=== PATIENT | female | born 1940 | race Caucasian/White ===

== ENCOUNTER 2022-06-24 14:39 | Observation (INO) ==
--- NOTE | 2022-06-24 14:45 | Emergency Department Note ---
Impression & Plan Interstitial lung disease, Fall, Acute hip pain, Weakness, Cellulitis ED Provider Note NAME: BINH BROWNE AGE: 82 SEX: F : 1940 ARRIVES VIA: Ambulance INFORMANT: [Patient][, ] ED PROVIDER(S): [Taz Argueta MD] Chief Complaint: Fall, weakness HPI: Patient presents from home due to concern for associated fall and weakness. The patient states that when she fell she fell from a seated position to her right side did have some right-sided hip pain. She denies any LOC or head strike. No fevers or chills. The patient was noted to be soiled in stool. Patient denies any chest pains or shortness of breath. The patient does wear chronic oxygen. Patient states that she does have home health workers that come into the home 3 days a week and they were last on Saturday. The patient does not remember her last she ate. Patient states that she has had increasing difficulty with ambulation and recurrence of falls. ROS: See HPI for pertinent positives and negatives. A total of 10 systems were reviewed and otherwise negative. Past medical history: See below Surgical history: See below Social history: See below Physical Exam: GENERAL: Disheveled, covered in stool, nasal cannula in place EYE EXAM: Normal conjunctiva. PERRL, no anisocoria and EOM's grossly intact w/o pain. NECK: Supple, no nuchal rigidity, no adenopathy, non-tender. No signs of meningismus. FROM of the neck with good chin to chest and neck extension. No stridor. LUNGS: Clear to auscultation. Normal chest wall mechanics. HEART: NSR, no MRG. ABDOMEN: Abdomen soft, non-tender, normo-active bowel sounds, no masses, no rebound or guarding. BACK: No CVA TTP. No reproducible thoracic or lumbar TTP. SKIN: Blanching erythema to the vulvovaginal groin area with no crepitus or string : Excoriated vulvovaginal and groin area without obvious Soheila. Intertriginous rash noted to the inferior portion of the bilateral breasts. UPPER EXTREMITIES: Upper extremities are grossly normal. LOWER EXTREMITIES: Grossly normal, no edema. NEURO EXAM: A&O x3, cranial nerves II-XII grossly intact, normal speech, moves all 4 extremities. Differential diagnoses: Fracture, dislocation, contusion, intra-abdominal, pneumothorax, intrathoracic, intracranial, neurologic, compartment syndrome, rhabdomyolysis, as well as other pathologies. Course: Patient was seen and evaluated the bedside. Full history physical exam was performed. EKG interpreted by me Significant motion artifact noted, ventricular rate is 103 normal QRS, left axis deviation no obvious ST elevations. No prior EKGs for comparison. Imaging Studies: See Below Cardiac monitoring: An order was placed for continuous cardiac monitoring. The monitor shows a rate of 92 with sinus rhythm. MDM: Patient was seen due to concern for falls and weakness. Blood work was obtained along with an EKG troponin chest x-ray CT head and cervical spine given the patient's fall. Right hip x-ray also obtained. Patient's sister did arrive and was wanting to take her home but did state that given that the patient has inability to care that this would not be safe to do so. The patient's blood work shows white count of 13 with a normal H&H and platelet count. The patient did receive a dose of Rocephin given the excoriation noted to her groin area likely consistent with a cellulitis. Kidney function unremarkable. Bilirubin at 2 but the patient has no right upper quadrant pain. TSH is low but free T4 is normal. COVID-negative patient CT head negative. CT cervical spine negative. The patient's chest x-ray shows worsening interstitial thickening. The patient's right hip x-ray is negative. I did speak the on-call hospitalist Dr. Henson and the patient was admitted to the medicine service. Past Med/Surg History Medical History Chronic cough Interstitial lung disease Lethargy Surgical History No pertinent past surgical history Social History Smoking Status: Never smoker Hx Alcohol Use: No Hx Substance Use: No Preferred Language: Mohawk Feels Safe at Home: Yes Allergies Allergies Allergy/AdvReac Type Severity Reaction Status Date / Time No Known Allergies Allergy Verified 06/24/22 15:54 Home Meds Home Medications Medication Instructions Recorded Confirmed hydrochlorothiazide 25 mg tablet 25 mg PO DAILY 03/12/22 06/24/22 sertraline 100 mg tablet 100 mg PO BID 03/12/22 06/24/22 metoprolol tartrate 25 mg tablet 25 mg PO DAILY 06/24/22 06/24/22 Previous Rx's Medication Instructions Recorded Oxygen Home #2 L 03/12/22 Portable Oxygen #1 ea 03/12/22 Results & Data (ED) Vital Signs Vital Signs - 24 hr 06/24/22 15:16 06/24/22 15:31 06/24/22 15:56 Temperature 37.2 C 37.2 C Temperature Source Oral Oral Pulse Rate 91 H 91 H Pulse Rate [Apical] 89 Pulse Rhythm [Apical] Respiratory Rate 18 18 18 Respiratory Effort / Characteristics Non-Labored Respiratory Depth Normal Blood Pressure 174/88 H Blood Pressure [Right Arm] Blood Pressure Mean 116 Blood Pressure Mean [Right Arm] Pulse Oximetry 96 96 99 Oxygen Delivery Method Nasal Cannula Nasal Cannula Nasal Cannula Oxygen Flow Rate 2 2 2 Sepsis Recent Fever Within 48 Hours No Sepsis New/Unexplained Change in Mental Status N/A Sepsis Action Taken by Nursing No Action Required 06/24/22 17:00 Temperature 37 C Temperature Source Oral Pulse Rate Pulse Rate [Apical] 87 Pulse Rhythm [Apical] Regular Respiratory Rate 20 Respiratory Effort / Characteristics Respiratory Depth Blood Pressure Blood Pressure [Right Arm] 144/79 H Blood Pressure Mean Blood Pressure Mean [Right Arm] 100 Pulse Oximetry 95 Oxygen Delivery Method Nasal Cannula Oxygen Flow Rate 2 Sepsis Recent Fever Within 48 Hours Sepsis New/Unexplained Change in Mental Status Sepsis Action Taken by Half-Way Medications Current Medication List: was personally reviewed by me Laboratory Data Attestation: I reviewed the patient's lab results. Result diagrams: 06/24/22 15:54 06/24/22 15:54 Lab Results 06/24/22 06/24/22 06/24/22 Range/Units 15:34 15:54 15:54 WBC 13.46 H (4.8-10.8) K/ul RBC 4.97 (3.93-5.22) M/uL Hgb 15.4 (12.0-16.0) g/dl Hct 44.6 (34.1-44.9) % MCV 89.7 (80.0-100.0) fL MCH 31.0 (25.0-34.0) pg MCHC 34.5 (32.0-36.0) g/dL RDW Std Deviation 45.3 (36.4-46.3) fL RDW Coeff of Xiomy 13.9 (11.5-14.5) % Plt Count 160 (130-400) K/uL MPV 11.5 (9.4-12.3) fL Immature Gran % (Auto) 0.3 % Neut % (Auto) 78.2 % Lymph % (Auto) 13.1 % Ness % (Auto) 5.9 % Eos % (Auto) 2.4 % Baso % (Auto) 0.1 % Neut # (Auto) 10.52 H (1.4-6.5) K/uL Lymph # (Auto) 1.76 (1.2-3.4) K/uL Ness # (Auto) 0.80 (0.24-0.82) K/uL Eos # (Auto) 0.32 (0-0.50) K/uL Baso # (Auto) 0.02 (0-0.2) K/uL Immature Gran # (Auto) 0.04 H (0.00-0.02) K/uL Sodium 140 (136-145) mmol/L Potassium 4.6 (3.5-5.1) mmol/L Chloride 105 (98-107) mmol/L Carbon Dioxide 27 (21-32) mmol/L Anion Gap 8 (3-11) BUN 13 (6-23) mg/dl Creatinine 0.63 (0.6-1.2) mg/dl Est Cr Clr Drug Dosing 65.8 ml/min Est GFR ( Amer) 97.5 ml/min Est GFR (Non-Af Amer) 84.1 ml/min BUN/Creatinine Ratio 20.6 H (10-20) Glucose 100 H (70-99(Fasting)) mg/dl Calcium 9.4 (8.5-10.1) mg/dl Total Bilirubin 2.0 H (0.2-1.0) mg/dl AST 32 (13-39) U/L ALT 20 (7-52) U/L Alkaline Phosphatase 69 (34-104) U/L Total Protein 6.7 (6.0-8.3) gm/dl Albumin 3.6 (3.4-5.0) gm/dl Globulin 3.1 (2.5-4.0) gm/dl Albumin/Globulin Ratio 1.2 (0.9-2) TSH 0.148 L (0.300-4.500) uIu/ml Free T4 1.35 (0.61-1.60) ng/dl SARS-CoV-2, RNA, NAAT (NEGATIVE) 06/24/22 Range/Units Unknown WBC (4.8-10.8) K/ul RBC (3.93-5.22) M/uL Hgb (12.0-16.0) g/dl Hct (34.1-44.9) % MCV (80.0-100.0) fL MCH (25.0-34.0) pg MCHC (32.0-36.0) g/dL RDW Std Deviation (36.4-46.3) fL RDW Coeff of Xiomy (11.5-14.5) % Plt Count (130-400) K/uL MPV (9.4-12.3) fL Immature Gran % (Auto) % Neut % (Auto) % Lymph % (Auto) % Ness % (Auto) % Eos % (Auto) % Baso % (Auto) % Neut # (Auto) (1.4-6.5) K/uL Lymph # (Auto) (1.2-3.4) K/uL Ness # (Auto) (0.24-0.82) K/uL Eos # (Auto) (0-0.50) K/uL Baso # (Auto) (0-0.2) K/uL Immature Gran # (Auto) (0.00-0.02) K/uL Sodium (136-145) mmol/L Potassium (3.5-5.1) mmol/L Chloride (98-107) mmol/L Carbon Dioxide (21-32) mmol/L Anion Gap (3-11) BUN (6-23) mg/dl Creatinine (0.6-1.2) mg/dl Est Cr Clr Drug Dosing ml/min Est GFR ( Amer) ml/min Est GFR (Non-Af Amer) ml/min BUN/Creatinine Ratio (10-20) Glucose (70-99(Fasting)) mg/dl Calcium (8.5-10.1) mg/dl Total Bilirubin (0.2-1.0) mg/dl AST (13-39) U/L ALT (7-52) U/L Alkaline Phosphatase (34-104) U/L Total Protein (6.0-8.3) gm/dl Albumin (3.4-5.0) gm/dl Globulin (2.5-4.0) gm/dl Albumin/Globulin Ratio (0.9-2) TSH (0.300-4.500) uIu/ml Free T4 (0.61-1.60) ng/dl SARS-CoV-2, RNA, NAAT NEGATIVE (NEGATIVE) Administered Medications Discontinued Medications Ceftriaxone Sodium (Rocephin) 2,000 mg in 70 mls @ 140 mls/hr IV NOW STA Stop: 06/24/22 17:07 Last Infusion: 06/24/22 17:54 Dose: 0 mls/hr Documented By: Admin: 06/24/22 17:20 Dose: 140 mls/hr Documented By: BLANCA Imaging Data Radiologist's Impression: Cervical Spine CT 06/24/22 15:[address] DOSE: 1065.11 mGy.cm HISTORY: fall TECHNIQUE: Multiaxial CT images of the cervical spine were performed and reformatted in the sagittal and coronal plane without the use of contrast. A dose lowering technique was utilized adhering to the principles of ALARA. COMPARISON: None. FINDINGS: No fractures. No subluxation. Prevertebral soft tissues and the C1-C2 interval are intact. No pneumothorax. Multinodular thyroid gland. Advanced degenerative changes within the cervical spine. IMPRESSION: No fractures within the cervical spine. ACT 112: Negative or not required by law. Electronically signed by: Juan Roldan M.D. 06/24/2022 4:37 PM Chest X-Ray 06/24/22 15:01 XR chest 1V portable HISTORY: Fall. weakness COMPARISON: Chest 03/08/2022. FINDINGS: No pneumothorax. No pleural effusions. The heart remains mildly enlarged. There is diffuse interstitial thickening which has slightly progressed. This may represent mild congestive change on the background of chronic interstitial change. Otherwise, no new focal lung consolidations to suggest a pneumonia. IMPRESSION: Interval progression of the diffuse interstitial thickening. This favors mild congestive change on the background of a chronic interstitial process. ACT 112: Negative or not required by law. Electronically signed by: Juan Roldan M.D. 06/24/2022 3:[address] 06/24/22 15:[address] DOSE: HISTORY: fall TECHNIQUE: Multiaxial CT images of the head were performed without the use of intravenous contrast. Automated exposure control was utilized for this study. A dose lowering technique was utilized adhering to the principles of ALARA. Comparison: None. Findings: The paranasal sinuses and mastoid air cells are clear. The calvarium and skull base are intact. There is no mass, hematoma, midline shift, acute infarct. White matter hypodensity is nonspecific but suggestive of microvascular ischemic change. The ventricles and sulci demonstrate mild age-related involutional changes. Impression: No acute intracranial abnormality. Atrophy and microvascular ischemic changes. ACT 112: Negative or not required by law. Electronically signed by: Juan Roldan M.D. 06/24/2022 4:33 PM Hip/Pelvis X-Ray 06/24/22 15:01 XR hip RT 2V w pelvis CLINICAL HISTORY: fall, hip pain COMPARISON STUDY: None. FINDINGS: No fracture or dislocation within the pelvis or hips. The sacrum is intact. Soft tissues are unremarkable. IMPRESSION: No fracture or dislocation within the pelvis or hips. ACT 112: Negative or not required by law. Electronically signed by: Juan Roldan M.D. 06/24/2022 3:45 PM Discharge Plan Visit Data Chief Complaint: Fall ED Provider: Taz Argueta Discharge Problem: Interstitial lung disease, Fall, Acute hip pain, Weakness, Cellulitis Forms Stand Alone Forms: [facility] [employer] Prescriptions Prescriptions: No Action sertraline 100 mg tablet 100 mg PO BID Rx Instructions: PER PT'S SISTER & [id number], "TAKING ONCE A DAY". LAST FILLED 06/08/22 FOR 180 TABS/90 DAYS. hydrochlorothiazide 25 mg tablet 25 mg PO DAILY Rx Instructions: LAST FILLED 06/08/22 FOR 90 TABS/90 DAYS. (DME) Portable Oxygen Misc See Rx Instructions .Route Qty: 1 0RF Rx Instructions: 2L at all times via nc (DME) Oxygen Home Liters Per Minute See Rx Instructions .ROUTE .MEDSUPPLY Qty: 2 0RF Rx Instructions: 2L via nc at all times metoprolol tartrate 25 mg tablet 25 mg PO DAILY Rx Instructions: LAST FILLED 05/30/22 FOR 30 TABS/30 DAYS. Referrals Referrals: Pavithra Alvarez CRNP [Primary Care Provider] -
--- NOTE | 2022-06-24 15:47 | XRay Report ---
XR hip RT 2V w pelvis CLINICAL HISTORY: fall, hip pain COMPARISON STUDY: None. FINDINGS: No fracture or dislocation within the pelvis or hips. The sacrum is intact. Soft tissues ar e unremarkable. IMPRESSION: No fracture or dislocation within the pelvis or hips. ACT 112: Negative or not required by law. Electronically signed by: Juan Roldan M.D. 06/24/2022 3:45 PM
--- NOTE | 2022-06-24 15:48 | XRay Report ---
XR chest 1V portable HISTORY: Fall. weakness COMPARISON: Chest 03/08/2022. FINDINGS: No pneumothorax. No pleural effusions. The heart remains mildly enlarged. There is diffuse interstitial thickening which has slightly progressed. This may represent mild congestive change on t he background of chronic interstitial change. Otherwise, no new focal lung consolidations to suggest a pneumonia. IMPRESSION: Interval progression of the diffuse interstitial thickening. This favors mild congestive change on th e background of a chronic interstitial process. ACT 112: Negative or not required by law. Electronically signed by: Juan Roldan M.D. 06/24/2022 3:47 PM
[2022-06-24 16:02] LABS: Basophils # (auto) 0.02 K/uL (0-0.2); Basophils % (auto) 0.1 %; Eosinophils # (auto) 0.32 K/uL (0-0.50); Eosinophils % (auto) 2.4 %; Hematocrit (blood only) 44.6 % (34.1-44.9); Hemoglobin 15.4 g/dl (12.0-16.0); Immature Granulocytes # (auto) 0.04 K/uL (0.00-0.02); Immature Granulocytes % (auto) 0.3 %; Lymphocytes # (auto) 1.76 K/uL (1.2-3.4); Lymphocytes % (auto) 13.1 %; Mean Corpuscular Hgb Conc 34.5 g/dL (32.0-36.0); Mean Corpuscular Volume 89.7 fL (80.0-100.0); Mean Platelet Volume 11.5 fL (9.4-12.3); Monocytes % (auto) 5.9 %; Neutrophils # (auto) 10.52 K/uL (1.4-6.5); Neutrophils % (auto) 78.2 %; Platelet Count 160 K/uL (130-400); RDW Coefficient of Variation 13.9 % (11.5-14.5); RDW Standard Deviation 45.3 fL (36.4-46.3); Red Blood Count 4.97 M/uL (3.93-5.22); White Blood Count 13.46 K/ul (4.8-10.8)
[2022-06-24 16:26] LABS: Albumin Globulin Ratio 1.2 (0.9-2); Albumin Level 3.6 gm/dl (3.4-5.0); BUN Creatinine Ratio 20.6 (10-20); Calcium 9.4 mg/dl (8.5-10.1); Creatinine Clr Calc Pharmacy 65.8 ml/min; Est GFR (African American) 97.5 ml/min; Est GFR (Non-African American) 84.1 ml/min; Globulin 3.1 gm/dl (2.5-4.0); Potassium 4.6 mmol/L (3.5-5.1); Total Protein 6.7 gm/dl (6.0-8.3)
[2022-06-24 16:30] LABS: Thyroid Stimulating Hormone 0.148 uIu/ml (0.300-4.500)
--- NOTE | 2022-06-24 16:35 | CT Scan Report ---
HEAD CT NONCONTRAST CT DOSE: HISTORY: fall TECHNIQUE: Multiaxial CT images of the head were performed without the use of intravenous contrast. A utomated exposure control was utilized for this study. A dose lowering technique was utilized adheri ng to the principles of ALARA. Comparison: None. Findings: The paranasal sinuses and mastoid air cells are clear. The calvarium and skull base are int act. There is no mass, hematoma, midline shift, acute infarct. White matter hypodensity is nonspecifi c but suggestive of microvascular ischemic change. The ventricles and sulci demonstrate mild age-rela laine involutional changes. Impression: No acute intracranial abnormality. Atrophy and microvascular ischemic changes. ACT 112: Negative or not required by law. Electronically signed by: Juan Roldan M.D. 06/24/2022 4:33 PM
[2022-06-24] MEDS ORDERED: cefTRIAXone SODIUM 2,000 MG/70 ML BAG IV STA (16:38)
--- NOTE | 2022-06-24 16:39 | CT Scan Report ---
CERVICAL SPINE CT CT DOSE: 1065.11 mGy.cm HISTORY: fall TECHNIQUE: Multiaxial CT images of the cervical spine were performed and reformatted in the sagittal and coronal plane without the use of contrast. A dose lowering technique was utilized adhering to th e principles of ALARA. COMPARISON: None. FINDINGS: No fractures. No subluxation. Prevertebral soft tissues and the C1-C2 interval are intact. No pneumothorax. Multinodular thyroid gland. Advanced degenerative changes within the cervical spine. IMPRESSION: No fractures within the cervical spine. ACT 112: Negative or not required by law. Electronically signed by: Juan Roldan M.D. 06/24/2022 4:37 PM
[2022-06-24 17:06] LABS: T4 Free Thyroxine 1.35 ng/dl (0.61-1.60)
--- NOTE | 2022-06-24 17:20 | History & Physical Report ---
Date of Service June 24, 2022 Assessment & Plan (1) Fall: Plan: Fall EKG: Poor quality initial EKG, sinus in room rate 88. No sodium/potassium derangements Creatinine less than 1 at baseline, admitting creatinine 0.63 No transaminitis TSH slightly low with normal free T4 Hip and pelvis x-ray: No acute fracture CThead: No acute findings chronic microvascular change CXR: Interval progression of diffuse interstitial thickening favoring mild congestive change versus interstitial process consistent with suspected IPF CTC-spine: No fracture PT/OT consulted. Progressive declin Groin excoriation Concern on admission for cellulitis, mild. Patient has been chronically incontinent/sitting in stool Leukocytosis? Reactive versus cellulitis Rocephin continued empirically for 5-day course of cellulitis. No evidence of abscess, no crepitus appreciated. Patient is not febrile, does not appear septic Ambulatory dysfunction, inability to care Patient found covered in stool, inability to perform ADLs PT/OT pending No fractures on initial eval/CT clear Case management consulted ILD, suspected IPF Followed by pulmonology With spirometry 2 days ago, pending outpatient follow-up Home oxygen baseline 2 L PFT 06/22/2022: Test was limited by severe patient fatigue. FVC 65% predicted, FEV1 66% predicted, ratio actual 74/percent predicted 100. Hypertension Continue atenolol, hydrochlorothiazide, metoprolol Depression Continue sertraline 100 mg ? Sinus tachycardia Poor quality EKG due to tremor, and telemetry P waves are apparent in rate 851 10 We will follow on telemetry given concern for junctional rhythm at initial presentation. Normal rate and P waves apparent at time of admission DVT prophylaxis: Lovenox Diet: Regular Disposition: Medical telemetry CODE STATUS: DNR/DNI discussed with patient and surrogate (2) Cellulitis: (3) Interstitial lung disease: History of Present Illness Primary Care Provider: Pavithra Salazar is an 82-year-old female with a past medical history of interstitial lung disease, hypertension, and depression She is in the bedside. Seen with her sister. Reports she is had several falls over the summer, and is progressively become very weak. Has difficulty pulling herself to stand. Recently had a fall which she thinks was 2 days ago and was unable to get back up. Was eventually found by family on the floor incontinent of stool. Denied head injury, but notes a very poor memory at baseline "you are asking old lady complicated questions ". Denies chest pain, chest pressure, headache, lightheadedness, dizziness, shortness of breath, palpitations at bedside. No nausea/vomiting. Endorses progressive gradual weakness over many months. Endorses a bilateral hand tremor in the last few days. Medical History: Reviewed Medications: Reviewed Surgical History: Reviewed Allergies: Reviewed Social History: Reviewed Code Status: DNR/DNI Allergies Allergy/AdvReac Type Severity Reaction Status Date / Time No Known Allergies Allergy Verified 06/24/22 15:54 Home Medications Medication Instructions Recorded Confirmed Type Oxygen Home #2 L 03/12/22 03/12/22 Rx Portable Oxygen #1 ea 03/12/22 03/12/22 Rx hydrochlorothiazide 25 mg tablet 25 mg PO DAILY 03/12/22 06/24/22 History sertraline 100 mg tablet 100 mg PO BID 03/12/22 06/24/22 History metoprolol tartrate 25 mg tablet 25 mg PO DAILY 06/24/22 06/24/22 History Past Med/Surg History Medical History Chronic cough Interstitial lung disease Lethargy Social History Smoking Status: Never smoker Hx Alcohol Use: No Hx Substance Use: No Preferred Language: Korean Feels Safe at Home: Yes Review of Systems Review of Systems: All systems reviewed & are unremarkable except as noted in HPI & below Physical Exam Physical Exam: General: Oriented to name and place. Cooperative. No acute distress HEENT: Atraumatic, normocephalic. Vision/hearing grossly intact Pulm: Fine crackles diffusely, no wheezes.. Symmetrical chest rise. No increased work of breathing. No respiratory distress. Cardiac: Tachycardic, regular. Radial pulses intact and symmetrical. Abdominal: Nontender, nondistended, soft. BS present. : Groin/thigh and outer clips of the labia bright red, some excoriation, tender. Extremities: Wiggles toes, resolution rep strength/elbow flexion intact, 4 -/5 bilaterally Results & Data Results & Data ([facility]) Vital Signs (Past 12 Hours) Vital Signs Temp Pulse Pulse Resp BP Pulse Ox O2 Del Method 06/24/22 15:56 37.2 C 89 18 99 Nasal Cannula 06/24/22 15:31 91 H 18 96 Nasal Cannula 06/24/22 15:16 37.2 C 91 H 18 174/88 H 96 Nasal Cannula O2 Flow Rate 06/24/22 15:56 2 06/24/22 15:31 2 06/24/22 15:16 2 PG Care Time/CCT Total # of Minutes Spent Total Time Spent with Patient: Total time spent is greater than 50% in coordination of care (as documented) at patient's floor/unit and/or counseling patient: Coding Level of Care Code INT OBSERVATION CARE 50M LVL 2 Diagnoses Fall W19.XXXA Cellulitis L03.90 Interstitial lung disease J84.9
[2022-06-24] MEDS ORDERED: ACETAMINOPHEN 325 MG TAB PO PRN (21:20)
[2022-06-24] MEDS ORDERED: ENOXAPARIN INJ 30 MG/0.3 ML SYR SQ SCH (21:30)
[2022-06-24] MEDS ORDERED: MICONAZOLE NITRATE POWDER 43 GM EXT PRN (22:13)
[2022-06-24] MEDS: SERTRALINE HCL 100 MG TABLET PO SCH (22:21)
[2022-06-25 07:51] LABS: Basophils # (auto) 0.03 K/uL (0-0.2); Basophils % (auto) 0.3 %; Eosinophils # (auto) 0.43 K/uL (0-0.50); Eosinophils % (auto) 3.9 %; Hemoglobin 13.5 g/dl (12.0-16.0); Immature Granulocytes # (auto) 0.02 K/uL (0.00-0.02); Immature Granulocytes % (auto) 0.2 %; Lymphocytes # (auto) 1.39 K/uL (1.2-3.4); Lymphocytes % (auto) 12.6 %; Mean Corpuscular Hemoglobin 30.3 pg (25.0-34.0); Mean Corpuscular Hgb Conc 33.8 g/dL (32.0-36.0); Mean Corpuscular Volume 89.7 fL (80.0-100.0); Mean Platelet Volume 11.2 fL (9.4-12.3); Monocytes # (auto) 0.66 K/uL (0.24-0.82); Neutrophils # (auto) 8.54 K/uL (1.4-6.5); Platelet Count 135 K/uL (130-400); RDW Coefficient of Variation 13.6 % (11.5-14.5); RDW Standard Deviation 44.8 fL (36.4-46.3); Red Blood Count 4.46 M/uL (3.93-5.22); White Blood Count 11.07 K/ul (4.8-10.8)
[2022-06-25] MEDS: SERTRALINE HCL 100 MG TABLET PO SCH (08:07)
[2022-06-25 08:30] LABS: Calcium 8.7 mg/dl (8.5-10.1); Creatinine Clr Calc Pharmacy 48.5 ml/min; Est GFR (African American) 86.6 ml/min; Est GFR (Non-African American) 74.8 ml/min; Potassium 3.5 mmol/L (3.5-5.1)
[2022-06-25] MEDS ORDERED: hydroCHLOROthiazide 25 MG TAB PO SCH (09:00)
[2022-06-25] MEDS ORDERED: METOPROLOL TARTRATE 25 MG TAB PO SCH (09:00)
--- NOTE | 2022-06-25 12:24 | Discharge Summary ---
Date of Service June 25, 2022 Admission HPI Per Admitting Provider Marie is an 82-year-old female with a past medical history of interstitial lung disease, hypertension, and depression She is in the bedside. Seen with her sister. Reports she is had several falls over the summer, and is progressively become very weak. Has difficulty pulling herself to stand. Recently had a fall which she thinks was 2 days ago and was unable to get back up. Was eventually found by family on the floor incontinent of stool. Denied head injury, but notes a very poor memory at baseline "you are asking old lady complicated questions ". Denies chest pain, chest pressure, headache, lightheadedness, dizziness, shortness of breath, palpitations at bedside. No nausea/vomiting. Endorses progressive gradual weakness over many months. Endorses a bilateral hand tremor in the last few days. Medical History: Reviewed Medications: Reviewed Surgical History: Reviewed Allergies: Reviewed Social History: Reviewed Code Status: DNR/DNI Principal Diagnosis Fall, Weakness, groin cellulitis Discharge Exam The patient is awake, alert and oriented 3, well developed and well nourished, normocephalic and atraumatic, lying in bed and in no acute distress. HEENT--PERRL, EOMI, mucous membranes and oropharynx mildly dry Neck--supple. No JVD. No bruits. Thyroid normal, trachea midline, no adenopa thy. Heart--normal S1 and S2. No murmurs, rubs or gallops. Lungs--clear bilaterally, no respiratory distress, no accessory muscle use. Abdomen--normal bowel sounds and soft. Mild epigastric and left sided abdominal pain Extremities--no cyanosis or clubbing. No edema. Dermatologic--normal skin turgor, normal color, no abnormal lymph nodes, no rash. Neurologic--cranial nerves II through XII grossly intact. Rheumatologic--normal range of motion. Psychiatric--normal affect. Discharge Data Allergies Allergy/AdvReac Type Severity Reaction Status Date / Time No Known Allergies Allergy Verified 06/24/22 15:54 Consultations 06/24/22 17:20 ED Decision to Admit Stat Ordered Studies 06/24/22 15:01 CT cervical spine wo con Stat CT head/brain wo con Stat Hospital Course (1) Fall: Fall EKG: Poor quality initial EKG, sinus in room rate 88. No sodium/potassium derangements Creatinine less than 1 at baseline, admitting creatinine 0.63 No transaminitis TSH slightly low with normal free T4 Hip and pelvis x-ray: No acute fracture CThead: No acute findings chronic microvascular change CXR: Interval progression of diffuse interstitial thickening favoring mild congestive change versus interstitial process consistent with suspected IPF CTC-spine: No fracture PT/OT evaluated, recommend home with home PT and rolling walker Ambulatory dysfunction, inability to care Patient found covered in stool, inability to perform ADLs PT/OT pending No fractures on initial eval/CT clear Case management consulted Hypertension Continue atenolol, hydrochlorothiazide, metoprolol Depression Continue sertraline 100 mg ? Sinus tachycardia Poor quality EKG due to tremor, and telemetry P waves are apparent in rate 851 10 We will follow on telemetry given concern for junctional rhythm at initial presentation. Normal rate and P waves apparent at time of admission DVT prophylaxis: Lovenox Diet: Regular Disposition: Medical telemetry CODE STATUS: DNR/DNI discussed with patient and surrogate (2) Cellulitis: Mild Groin excoriation Concern on admission for cellulitis, mild. Patient has been chronically incontinent/sitting in stool some improvement since admission -No need for antibiotics (3) Interstitial lung disease: ILD, suspected IPF Followed by pulmonology With spirometry 2 days ago, pending outpatient follow-up Home oxygen baseline 2 L PFT 06/22/2022: Test was limited by severe patient fatigue. FVC 65% predicted, FEV1 66% predicted, ratio actual 74/percent predicted 100. Plan d/c home with home health and a rolling walker Total Time Total Time Spent Total Time Spent (In Minutes): 35 Discharge Plan Discharge Items Patient Disposition: Home - Home Health Services Reason For Visit: FALL, WEAKNESS Discharge Diagnosis: Weakness, Fall, cellulitis Activity: Resume your previous activity Non-emergency contact: Primary Care Provider Call non-emergency contact if: you have any medication questions Follow-up/Referrals: Pavithra Alvarez CRNP [Primary Care Provider] - 07/04/22 3:45 pm () Diet: Regular Addtl Attending Provider Instructions: please make appointment to follow up with your PCP Pending Studies at Discharge: No Stand-Alone Forms: My [employer], Smoking Cessation Medications and DC Order Prescriptions: Continued sertraline 100 mg tablet 100 mg PO BID Rx Instructions: PER PT'S SISTER & [id number], "TAKING ONCE A DAY". LAST FILLED 06/08/22 FOR 180 TABS/90 DAYS. hydrochlorothiazide 25 mg tablet 25 mg PO DAILY Rx Instructions: LAST FILLED 06/08/22 FOR 90 TABS/90 DAYS. (DME) Portable Oxygen Misc See Rx Instructions .Route Qty: 1 0RF Rx Instructions: 2L at all times via nc (DME) Oxygen Home Liters Per Minute See Rx Instructions .ROUTE .MEDSUPPLY Qty: 2 0RF Rx Instructions: 2L via nc at all times metoprolol tartrate 25 mg tablet 25 mg PO DAILY Rx Instructions: LAST FILLED 05/30/22 FOR 30 TABS/30 DAYS. Discharge Orders: Discharge Order (Routine); Ordered 06/25/22 Ordered By: Catarina Espinosa/Other Patient Handouts: Fall Prevention Assessing Risk, Falls Prevent Use Cane Walker, Exercises to Prevent Falls, Preventing Falls: Staying Active, Prevent Falls Make Health Priority Admission Data Admit Date/Time: 06/24/22 17:56 Attending Provider: Catarina Pinto Admit Provider: Devante Henson Primary Care Provider: Pavithra Alvarez Other Providers: Devante Henson ; [facility] Other Interventions: Discharge Summary Assessment (RN) Last Done: 06/25/22 11:24 Coding Level of Care Code D/C DAY MANAGEMENT >30 MINS Diagnoses Fall W19.XXXA Cellulitis L03.90 Site of cellulitis of trunk: groin Interstitial lung disease J84.9 Time Spent (min) 35
[2022-06-25] MEDS ORDERED: cefTRIAXone SODIUM 2,000 MG in DEXTROSE 5% 50 ML IV SCH (18:00)
--- NOTE | 2022-06-26 06:14 | Electrocardiogram Report ---
Test Reason : Blood Pressure : / mmHG Vent. Rate : 103 BPM Atrial Rate : 095 BPM P-R Int : 000 ms QRS Dur : 096 ms QT Int : 332 ms P-R-T Axes : 000 -27 154 degrees QTc Int : 434 ms Poor data quality, interpretation may be adversely affected Rhythm difficult to identify due to significant artifact. Possible sinus rhythm Incomplete right bundle branch block Left ventricular hypertrophy with repolarization abnormality Nonspecific ST and T wave abnormality Abnormal ECG No previous ECGs available Recommend repeat ECG Confirmed by Luis Enrique Harding ([id number]) on 06/26/2022 6:14:27 AM Referred By: REFERRED SELF Confirmed By:Luis Enrique Harding
== END 2022-06-25 12:25 | disposition home health service (06) ==
LOC: ED 14:39 → 2N 14:39 → SUATTDRO 17:56 → 2N 21:11